=== PATIENT | male | born 1950 | race Caucasian/White ===

== ENCOUNTER 2019-12-26 10:17 | Outpatient (CLI) | payer MEDICARE, BC ==
[~2019-12-26] VITALS: Ht 198.1 cm; Wt 113.4 kg
[2019-12-26 10:56] LABS: TOTAL HEMOGLOBIN 15.9 G/dl (14.0-17.9)
[2019-12-26] MEDS ORDERED: albuterol 2.5 MG/3 ML nebule NEB PRN (11:20)
== END 2019-12-26 23:59 | disposition home or self-care (01) ==
LOC: RT 10:17
PROVIDERS: ATTEND Specialist
DX: R06.02 Shortness of breath (principal); Z79.899 Other long term (current) drug therapy
CPT/HCPCS: 85018; 94060; 94727; 94729; 94760

== ENCOUNTER 2021-06-25 05:42 | Day surgery (SDC) | payer MEDICARE, BC ==
[2021-06-19 15:27] LABS: BASOPHILS # (AUTO) 0.1 X10'3 (0-0.2); EOSINOPHILS # (AUTO) 0.1 X10'3 (0-0.9); EOSINOPHILS % (AUTO) 1.5 % (0-6); LYMPHOCYTES # (AUTO) 1.4 X10'3 (1.1-4.8); LYMPHOCYTES % (AUTO) 18.3 % (21-51); MEAN CORPUSCULAR HEMOGLOBIN 29.2 PG (27.0-31.0); MEAN CORPUSCULAR VOLUME 85.8 FL (78-98); MEAN PLATELET VOLUME 9.4 FL (7.4-10.4); MONOCYTES # (AUTO) 0.8 X10'3 (0-0.9); MONOCYTES % (AUTO) 10.4 % (2-12); NEUTROPHILS # (AUTO) 5.4 X10'3 (1.8-7.7); NEUTROPHILS % (AUTO) 68.8 % (42-75); PRE OP HEMOGLOBIN 14.6 g/dL (14.0-17.9); PRE OP PLATELET COUNT 238 X10'3 (140-440); RED BLOOD COUNT 5.01 X10'6 (4.70-6.10); RED CELL DISTRIBUTION WIDTH 14.8 % (11.5-14.5)
[2021-06-19 15:47] LABS: ALBUMIN 3.9 G/DL (3.4-5.0); ALBUMIN/GLOBULIN RATIO 1.1 (1.1-1.5); ALKALINE PHOSPHATASE 117 IU/L (46-116); BLOOD UREA NITROGEN 26 MG/DL (7-18); BUN/CREATININE RATIO 17.1 (5.4-32.0); CHLORIDE 109 MMOL/L (99-107); CREATININE 1.52 MG/DL (0.60-1.10); PRE OP ALT 23 U/L (30-65); PRE OP ANION GAP 8 (8-16); PRE OP AST 19 U/L (10-37); PRE OP BILIRUB, TOTAL 0.5 MG/DL (0.0-1.0); PRE OP GLUCOSE 87 MG/DL (70-104); PRE OP POTASSIUM 4.7 MMOL/L (3.4-5.1); PRE OP SODIUM 143 MMOL/L (135-145); TOTAL CARBON DIOXIDE 26.4 MMOL/L (24-32); TOTAL PROTEIN 7.3 G/DL (6.4-8.2); eGFR 45 ML/MIN
[2021-06-25] VITALS (11 sets, daily range): BP systolic 120–139; BP diastolic 54–75
[~2021-06-25] VITALS: Ht 198.1 cm; Wt 107.1 kg
[~2021-06-25 05:42] MED LIST: AMIO200T62 PO; APIX5TAB3 PO; LISI40TA13 PO; ROSU10TA2 PO; famotidine 20mg tablet PO ONE; ringers solution, lacted 1,000 ML IV SCH
[2021-06-25] MEDS ORDERED: cefazolin/dext.iso 2gm/50ml 50 ML IV ONE (06:00)
[2021-06-25] MEDS ORDERED: BUPIVAcaine/PF 2.5 mg/ml (0.25%) 30ml vial ONE (06:48)
[2021-06-25] MEDS ORDERED: LIDOcaine 1% 30ml preserv. free vial ONE (06:48)
[2021-06-25] MEDS ORDERED: midazolam 1 mg/ML 2ml injection ONE (07:17)
[2021-06-25] MEDS ORDERED: fentaNYL /PF 50mcg/ml 5ml ampule ONE (07:18)
[2021-06-25] MEDS ORDERED: morphine 2 MG/ML inj. syringe IV PRN (07:25)
[2021-06-25] MEDS ORDERED: hydrALAZINE 20mg/ml inj. IV PRN (07:25)
[2021-06-25] MEDS ORDERED: meperidine/PF 25mg/ml syringe IV PRN ×3 (07:25)
[2021-06-25] MEDS ORDERED: morphine 4 MG/ML inj SYRINge IV PRN (07:25)
[2021-06-25] MEDS ORDERED: ondansetron/PF 4mg/2ml inj IV PRN (07:25)
[2021-06-25] MEDS ORDERED: ringers solution, lacted 1,000 ML IV SCH (07:25)
[2021-06-25] MEDS ORDERED: acetaminophen 1,000mg/100ml IV 100 ML IV PRN (07:25)
[2021-06-25] MEDS ORDERED: proCHLORperazine 10 MG/2 ml inj IV PRN (07:25)
[2021-06-25] MEDS ORDERED: labetalol 20mg/4ml (5mg/ml) syringe IV PRN (07:25)
[2021-06-25] MEDS ORDERED: ondansetron/PF 4mg/2ml inj ONE (08:15)
[2021-06-25] MEDS ORDERED: rocuronium 10mg/ml inj IV ONE (08:15)
[2021-06-25] MEDS ORDERED: LIDOcaine 2% (20mg/ml) 5ml vial ONE (08:15)
[2021-06-25] MEDS ORDERED: propofol inj 20 ML IV ONE (08:15)
[2021-06-25] MEDS ORDERED: dexamethasone sod phosphate 4mg/ml inj. ONE (08:15)
[2021-06-25] MEDS ORDERED: atropine 0.4 mg/ml 20ml vial ONE (09:03)
[2021-06-25] MEDS ORDERED: neostigmine methylsulfate 1 MG/ML 10ml vial ONE (09:03)
--- NOTE | 2021-06-25 09:12 | NUR ---
Received from OR via , accompanied by Anesthesiologist DR HOROWITZ and report given by Anesthesiolgist. AWAKENS TO VOICE. VITALS STABLE. PULSE IN THE 30S WILL GIVE ATROPINE PER ANESTHESIA. DRESSINGS DI. EDILIA PAIN.
[2021-06-25] MEDS ORDERED: atropine 0.1mg/ml 10ml syringe ONE (09:14)
[2021-06-25] MEDS ORDERED: HYDROcodone/acetaminophen 5mg/325mg tablet PO PRN (09:20)
[2021-06-25] MEDS ORDERED: atropine 1 MG/1 ML vial IV ONE (09:20)
[2021-06-25] MEDS ORDERED: ketorolac trometh. 30mg/ml inj. IV ONE (09:55)
[2021-06-25] MEDS ORDERED: ketorolac tromethamine 15mg/ml inj. IV ONE (10:00)
--- NOTE | 2021-06-25 10:32 | NUR ---
PT IS AWAKE AND ORIENTED. VITALS STABLE. HR IN THE MID 50S AFTER UP AND WALKING. EDILIA DIZZINESS . DRESSINGS DI. STATES PAIN IMPROVING. HOME WITH HIS AFTER SPEAKING WITH ANESTHESIA.
== END 2021-06-25 10:32 | disposition home or self-care (01) ==
LOC: PAS 05:42
PROVIDERS: ATTEND Surgery
DX: K42.9 Umbilical hernia without obstruction or gangrene (principal); K40.90 Unilateral inguinal hernia, without obstruction or gangrene, not specified as recurrent; I48.91 Unspecified atrial fibrillation; I10 Essential (primary) hypertension; E78.5 Hyperlipidemia, unspecified; G47.30 Sleep apnea, unspecified; Z79.01 Long term (current) use of anticoagulants; Z79.899 Other long term (current) drug therapy; Z20.822 Contact with and (suspected) exposure to COVID-19; Z96.643 Presence of artificial hip joint, bilateral; Z98.41 Cataract extraction status, right eye; Z98.42 Cataract extraction status, left eye; Z98.890 Other specified postprocedural states; Z87.891 Personal history of nicotine dependence
CPT/HCPCS: 36415; 49585; 49650; 71046; 80053; 82948; 85025; J0131; J0461; J1100; J2001; J2250; J2405; J2704; J2710; J3010; J3490; U0003; U0005; Z7512; A4215; A4618; A7000; C1781; J7120